=== PATIENT | female | born 1960 | race African-American/Black ===

== ENCOUNTER 2017-11-21 10:43 | Emergency (ER) | payer MEDICAID ==
[2017-11-21 10:50] VITALS: TEMP 98.4
[2017-11-21] MEDS ORDERED: NS 1,000 ML IV ONE ×2 (11:04)
[2017-11-21 11:23] LABS: PLATELET COUNT 407 10^3/uL (150-400)
--- NOTE | 2017-11-21 12:53 | EDPHY ---
H & P Stated Complaint: abdominal pain N/V/D 4 days, cough, congestion Time Seen by Provider: 11/21/17 10:53 HPI/ROS: Chief complaint: Abdominal discomfort with nausea, vomiting and diarrhea History of present illness: This is a 57-year-old female who presents to the emergency department for evaluation of abdominal discomfort. She has had associated nausea and vomiting as well as diarrhea. She has had symptoms for the last few days. She denies precipitating factors. She denies alleviating factors. She denies other associated signs or symptoms including no fevers. No blood in the vomit or diarrhea, no mucus in the stools. No urinary symptoms. Has had slight runny nose and cough although no sore throat, no chest congestion, no trouble breathing, no rash. Review of systems: A 10 point review of systems was obtained and other than described above was negative - Personal History Current Tetanus/Diphtheria Vaccine: Yes Current Tetanus Diphtheria and Acellular Pertussis (TDAP): Yes Tetanus Vaccine Date: < 10 years - Medical/Surgical History Hx Asthma: No Hx Chronic Respiratory Disease: Yes Hx Diabetes: No Hx Cardiac Disease: Yes Hx Renal Disease: No Hx Cirrhosis: No Hx Alcoholism: No Hx HIV/AIDS: No Hx Splenectomy or Spleen Trauma: No Other PMH: hyperlipidemia, FM, carpel tunnel, tendonistis, COPD - Social History Smoking Status: Current every day smoker - Physical Exam Exam: General Appearance: Alert, nontoxic. Eyes: Pupils equal and round no pallor or injection. ENT, Mouth: Mucous membranes moist. Tympanic membranes, external auditory canals, external ears and surrounding soft tissue including over the mastoids are unremarkable. Nasopharynx is not injected. There is no rhinorrhea. Oropharynx is not injected. There is no edema. There is no exudate. There is no asymmetry. The uvula is midline. No elevation of the tongue. There is no hoarseness, no drooling, no trismus, no stridor. Respiratory: There are no retractions, lungs are clear to auscultation. Cardiovascular: Regular rate and rhythm. Gastrointestinal: Abdomen is soft and non tender, no masses, bowel sounds normal. Neurological: Alert. Strength and sensation intact and symmetrical. No meningismus. Skin: Warm and dry, no rashes. Musculoskeletal: Neck is supple non tender. Extremities are symmetrical, full range of motion. Psychiatric: Patient is oriented X 3, there is no agitation. Constitutional: Initial Vital Signs Temperature (C) 36.9 C 11/21/17 10:47 Heart Rate 105 H 11/21/17 10:47 Respiratory Rate 20 11/21/17 10:47 Blood Pressure 149/89 H 11/21/17 10:47 O2 Sat (%) 97 11/21/17 10:47 O2 Delivery Mode Room Air Allergies/Adverse Reactions: Sulfa (Sulfonamide Antibiotics) Allergy (Verified 11/21/17 10:46) Home Medications: Medication Instructions Recorded Buspar (*) 11/21/17 LYRICA 11/21/17 SIMVASTATIN 11/21/17 Medical Decision Making ED Course/Re-evaluation: Patient seen under the supervision of my secondary supervising physician Dr. Daniel Spann. Patient presents to the emergency department with abdominal cramping with nausea, vomiting and diarrhea. Serial abdominal exams in the emergency room are benign. Blood studies largely unremarkable. I attempted to get stool studies but she was unable to have a bowel movement. She is IV hydrated. She is feeling much better. She is tolerating oral challenges without difficulty. She will be discharged home. Home care is discussed. Return precautions are given. Differential Diagnosis: Included but not limited to gastritis, gastroenteritis, biliary tract disease, pancreatitis, colitis - Data Points Laboratory Results: Laboratory Results 11/21/17 11:15 11/21/17 11:15 Medications Given: Discontinued Medications Sodium Chloride (Ns) 1,000 mls @ 0 mls/hr IV EDNOW ONE; Wide Open PRN Reason: Protocol Stop: 11/21/17 11:05 Last Admin: 11/21/17 12:30 Dose: 1,000 mls Sodium Chloride (Ns) 1,000 mls @ 0 mls/hr IV EDNOW ONE; Wide Open PRN Reason: Protocol Stop: 11/21/17 11:05 Last Admin: 11/21/17 11:30 Dose: 1,000 mls Departure - Departure Disposition: Home, Routine, Self-Care Clinical Impression: Vomiting, Diarrhea Condition: Good Instructions: Acute Nausea and Vomiting (ED), Acute Diarrhea (ED) Additional Instructions: Follow-up with primary care doctor this week for recheck If symptoms worsen or new symptoms develop return to the emergency room for recheck Referrals: NONE *PRIMARY CARE P,. [Primary Care Provider] - As per Instructions [facility],. [Clinic] - As per Instructions
[2017-11-21 13:19] VITALS: BP 140/94; PULSE 102; RESP 18; O2SAT 96
--- NOTE | 2017-11-21 13:24 | ASDISCHSUM ---
Discharge Information Plan Status:Homeless/Group Home Medically Cleared to Leave: Discharge Date:11/21/2017 01:17 PM CM D/C Disposition:Streets (Homeless) ADT D/C Disposition:Home, Routine, Self-Care Projected Discharge Date:11/21/2017 01:17 PM Transportation at D/C:None or Unknown Discharge Delay Reason: Follow-Up Date:11/21/2017 01:17 PM Discharge Slot: Final Diagnosis: Placement Information Patient Contact Information Contact Name:RAFAELA Relationship:Zeeshan Address: Home Phone: City: [facility] Phone: State/Zip Code: Email: Financial Information Financial Class:Medicaid Primary Plan Desc:MEDICA[employer] HE[employer] Primary Plan Number:[id number] Secondary Plan Desc: Secondary Plan Number: Assessment Information [facility] Progress Note CM Note CM Note Notes: Spoke with patient regarding outpatient follow-up care. Patient states she is seen at [facility] and plans on following up with them tomorrow. Pt states she and her significant other have been staying at the [facility]. Pt's significant other wears supplemental oxygen and has a small portable tank; he asked if he could switch it out for a full one here at the hospital; he was informed we are not able to do that and recommended he call his oxygen supply company. Patient states he has extra tanks "at the office" and will get a new one tomorrow morning, and that the one they have now will get him through the night. This CM looked at the oxygen tank and it had "[facility]" stamped on it: it appears they have a local office at [address] in [place] (Open: 8:30am-5:00pm, M-F; Main: [phone], , Toll Free: [phone]). Patient requested bus passes but was informed there are none available and pt replied "it's okay, we'll manage and figure it out." CM available for further assistance if needed. Date Signed: 11/21/2017 01:22 PM Electronically Signed By:Nimo Herrera RN Intervention Information
== END 2017-11-21 13:17 | disposition home or self-care (01) ==
DX: R11.10 Vomiting, unspecified (principal); R19.7 Diarrhea, unspecified; J44.9 Chronic obstructive pulmonary disease, unspecified; E86.9 Volume depletion, unspecified; F17.200 Nicotine dependence, unspecified, uncomplicated